=== PATIENT | male | born 1955 | race Caucasian/White ===

== ENCOUNTER 2018-11-29 07:38 | Outpatient (CLI) | payer OTHER ==
--- NOTE | 2018-11-29 11:05 | CT ---
CT ABDOMEN AND PELVIS WITH CONTRAST: 11/29/2018 COMPARISON: 12/15/2010 FINDINGS: ABDOMEN: The lung bases are clear except for some dependent atelectasis. A small hiatal hernia is s uggested. Folds in the antrum of the stomach are marginally thick, which may or may not be significa nt. The liver, spleen, and pancreas show no space occupying disease. No stones are seen in the gall bladder. The adrenal glands are unremarkable. The aorta is normal in caliber. No solid mass or hydronephrosis is seen in either kidney. There is a 3 cm cyst in the lower pole of the right kidney, which was present before and has grown slightly over time. The main difference wit h respect to the kidneys is a rather large calculus in the left renal pelvis that is nonobstructing. It is about 2.3 cm long and 0.9 cm wide. There is no sign of ureteral calculi. The bowel shows no distention. There is a moderate amount of fecal material in the colon. There is no inflammatory change around the colon at any point, such as diverticulitis. No free air or free fl uid is seen. PELVIS: No pelvic masses, fluid collections, or inflammatory changes. Bilateral fat-filled inguinal hernias are noted, which are probably of no consequence. 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 Degenerated disks are seen at several levels. IMPRESSION: 1. Nonobstructing calculus in the pelvis of the left kidney, a new finding since the prior scan. Wh ile not currently a problem, it might be nguyen to get elective urological followup. 2. Equivocal thickening of the folds in the antrum of the stomach, which may or may not be of signif icance. 3. Small hiatal hernia. 4. Mild constipation without findings of diverticulitis or similar inflammatory changes. POS: HOME
== END 2018-11-29 07:39 | disposition home or self-care (01) ==
LOC: BURCT 07:38
PROVIDERS: ATTEND Family Medicine
DX: R10.2 Pelvic and perineal pain (principal); N20.0 Calculus of kidney; K44.9 Diaphragmatic hernia without obstruction or gangrene; K59.00 Constipation, unspecified; K31.89 Other diseases of stomach and duodenum
CPT/HCPCS: 74177

== ENCOUNTER 2021-12-01 14:16 | Emergency (ER) | payer MEDICARE, OTHER ==
[2021-12-01 14:52] LABS: #Basophils 0.1 thou/uL (0.0-0.2); #Lymphocytes 1.4 thou/uL (1.20-3.40); #Monocytes 0.7 thou/uL (0.11-0.59); #Neutrophils 5.5 thou/uL (1.40-6.50); %Basophils 1.5 % (0.0-1.0); %Eosinophils 0.6 % (0.0-10.0); %Lymphocytes 17.9 % (21.0-51.0); %Neutrophils 71.1 % (42.0-75.0); Hemoglobin 15.9 g/dL (14.0-18.0); Mean Corpuscular HGB CONC 34.1 g/dL (32.0-36.0); Mean Corpuscular Hemoglobin 30.7 pg (27.0-31.0); Mean Corpuscular Volume 90.3 fL (78.0-98.0); Mean Platelet Volume 9.1 fL (7.4-10.4); Platelet Count 180 thou/uL (130-400); Red Blood Cell (RBC) Count 5.17 mill/uL (4.70-6.10); White Blood Cell (WBC) Count 7.8 thou/uL (4.8-10.8)
[2021-12-01 15:06] LABS: ALT (SGPT) 37 U/L (8-55); AST (SGOT) 32 U/L (5-34); Albumin 4.7 g/dL (3.4-4.8); Alkaline Phosphatase 50 U/L (40-110); Anion Gap 14 mmol/L (10-20); BUN (Urea Nitrogen) 20 mg/dL (8.4-25.7); Bilirubin, Total 0.8 mg/dL (0.2-1.2); Calc. Creatinine Clearance 0 mL/min (70-130); Calcium 9.9 mg/dL (7.8-10.44); Carbon Dioxide 27 mmol/L (23-31); Chloride 105 mmol/L (98-107); Estimated GFR 53; Glucose 86 mg/dL (80-115); Magnesium 1.4 mg/dL (1.6-2.6); Potassium 4.3 mmol/L (3.5-5.1); Protein, Total 7.7 g/dL (5.8-8.1); Sodium 142 mmol/L (136-145)
[2021-12-01] MEDS ORDERED: Magnesium 2 GM/50 ML BAG (IN WATER) ONE (16:02)
== END 2021-12-01 18:40 | disposition short-term general hospital (02) ==
LOC: BURERS 14:16
DX: N17.9 Acute kidney failure, unspecified (principal); E83.42 Hypomagnesemia; R09.89 Other specified symptoms and signs involving the circulatory and respiratory systems; E11.9 Type 2 diabetes mellitus without complications; E78.5 Hyperlipidemia, unspecified; E78.00 Pure hypercholesterolemia, unspecified; Z79.84 Long term (current) use of oral hypoglycemic drugs; Z79.82 Long term (current) use of aspirin; Z79.899 Other long term (current) drug therapy
CPT/HCPCS: 36416; 70491; 80053; 83735; 84484; 85025; 93005; 96361; 96365; J3475